=== PATIENT | female | born 1990 | race Caucasian/White ===

== ENCOUNTER 2018-04-30 09:29 | Emergency (ER) | payer OTHER, BC | END 2018-04-30 11:19 | disposition home or self-care (01) | LOC: FTE 09:29 | DX: H66.90 Otitis media, unspecified, unspecified ear (principal); H61.23 Impacted cerumen, bilateral | CPT/HCPCS: 99283; Z7502 ==

== ENCOUNTER 2018-06-09 18:02 | Emergency (ER) | payer OTHER | END 2018-06-09 20:12 | disposition home or self-care (01) | LOC: FTE 18:02 | DX: J40 Bronchitis, not specified as acute or chronic (principal) | CPT/HCPCS: 81025; 99283 ==